=== PATIENT | female | born 1975 | race Caucasian/White ===

== ENCOUNTER 2017-06-22 10:06 | Outpatient (CLI) | payer BC ==
[2013-06-09 21:56] VITALS: BP 130/72
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
== END 2017-06-22 10:07 ==
LOC: RAD 10:06
PROVIDERS: ATTEND Physician Assistant
DX: S89.91XA Unspecified injury of right lower leg, initial encounter (principal); X58.XXXA Exposure to other specified factors, initial encounter; Y92.9 Unspecified place or not applicable; Y93.9 Activity, unspecified; Y99.9 Unspecified external cause status
CPT/HCPCS: 73590

== ENCOUNTER 2017-08-30 09:17 | Outpatient (CLI) | payer BC ==
[2013-06-09 21:56] VITALS: BP 130/72
[2017-08-30 19:31] LABS: RUBELLA AB, IgG 61.8 IU/mL
== END 2017-08-30 09:18 ==
LOC: LAB 09:17
PROVIDERS: ATTEND Physician Assistant
DX: Z02.0 Encounter for examination for admission to educational institution (principal)
CPT/HCPCS: 36415; 86706; 86735; 86762; 86765; 86787